=== PATIENT | male | born 1990 | race Caucasian/White ===

== ENCOUNTER 2017-09-30 10:34 | Emergency (ER) | payer OTHER ==
[~2017-09-30] VITALS: Ht 177.8 cm; Wt 102.0 kg
[2017-09-30 10:37] VITALS: TEMP 36.6; Ht 177.8 cm; Wt 102.0 kg
[2017-09-30] MEDS ORDERED: LIDOCAINE 1% BUFFERED INJ 20 ML VIAL INFIL ONE (11:00)
--- NOTE | 2017-09-30 11:39 | EMERGENCY ROOM VISIT NOTE ---
History First contact with patient: 10:40 Chief Complaint: HEAD INJURY (MINOR) Stated Complaint: GASH IN HEAD History of Present Illness The patient is a 27 year old male who presents to the Emergency Room from work with complaints of a laceration to the top of his head. The patient states that he was working with pipe and was near a spindle of chain and he thinks the chain knocked off his hard hat and his head hit a pole or screw and lacerated the top of his head. The patient denies a loss of consciousness, headache, dizziness or visual changes. The patient's tetanus is up-to-date. Review of Systems 10 system review was performed and was negative unless stated otherwise history of present illness. Past Medical/Surgical History No significant past medical history Social History Smoking Status: Never Smoker Alcohol Use: occasionally Occupation Status: employed Physical Exam Vital Signs Date Time Temp Pulse Resp B/P (MAP) Pulse Ox O2 Delivery O2 Flow Rate FiO2 18 10:37 36.6 77 18 120/81 98 Room Air Physical Exam GENERAL: 27-year-old white male appears in no acute distress. MENTAL Status: Alert and oriented 3. EYES: PERRLA. EOMs intact. HEAD: There is a 3 cm gaping laceration on the top of the patient's head which is midline. There is minimal active bleeding. The wound looks clean. No deep structures are visualized. NECK: Supple, no lymphadenopathy noted. No carotid bruits noted. LUNGS: Clear auscultation without wheezes rales or rhonchi. CARDIAC: Regular rate and rhythm without murmur. Pulses is full and equal throughout. NEURO:Cranial nerves two through 12 intact. Cerebellar function intact with [id number]. Fine motor intact with alternating finger motions. Medical Decision & Procedures Procedure Wound Repair: Was performed by my PA student under my direct supervision. Complexity: Basic. Verbal consent was obtained after the risks and benefits were explained, including but not limited to bleeding, scarring, infection, pain, and bone/joint /nerve damage. The skin was prepped with betadine and a sterile field set. The wound was anesthetized with 3.0 ml of 1% buffered lidocaine. With direct pressure the bleeding subsided. Copious irrigation was performed using sterile saline. The wound was explored for foreign bodies and none found. Debridement was not performed. The wound edges were approximated using 5 pennie Hemostasis and excellent approximation was achieved. Antibacterial ointment and a sterile dressing applied. Detailed wound care instructions and signs and symptoms of infection reviewed with the patient. No complications and the patient tolerated the procedure well. ED Course The patient was evaluated. Laceration repair was performed as above. Medical Decision Differential diagnosis include laceration, head contusion, concussion, intracranial bleed [place] Drug Monitoring Program Search Results: patient reviewed within database Head Trauma GCS Score: 15 Medication Reconcilliation Current Medication List: was personally reviewed by me Blood Pressure Screening Patient's blood pressure: Normal blood pressure Impression Primary Impression: Scalp laceration Departure Information Dispostion Home / Self-Care Condition GOOD Forms HOME CARE DOCUMENTATION FORM, IMPORTANT VISIT INFORMATION Patient Instructions My [facility] Additional Instructions Keep wound clean and dry. No water on the area for 12-24 hrs then no soaking until pennie removed. Do not allow any crusting or dried blood to accumulate on the pennie.. If this occurs, use a 1:1 solution of hydrogen peroxide/water on a Q-tip to clean the wound. Use an antibiotic ointment for 3-4 days, then let wound dry. Staple removal in 7 8 days. Follow up sooner for any signs of infection (increasing redness, swelling, drainage). Ice and elevate for swelling and pain. Tylenol 650 mg every 6 hrs for pain. Problem Qualifiers Primary Impression: Scalp laceration Encounter type: initial encounter Qualified Codes: S01.01XA - Laceration without foreign body of scalp, initial encounter
[2017-09-30 11:48] VITALS: BP 116/78; PULSE 68; O2SAT 100
== END 2017-09-30 11:48 | disposition home or self-care (01) ==
LOC: C.EDB 10:35 → C.EDD 11:48
DX: S01.01XA Laceration without foreign body of scalp, initial encounter (principal); W22.8XXA Striking against or struck by other objects, initial encounter; R40.2412 Glasgow coma scale score 13-15, at arrival to emergency department